=== PATIENT | male | born 1965 ===

== ENCOUNTER 2019-06-24 23:15 | Emergency (ER) | payer OTHER ==
[~2019-06-24] VITALS: Ht 167.6 cm; Wt 86.2 kg
[~2019-06-24 23:15] MED LIST: MILLIPRED DP5 MG PO; NABUMETONE750 MG PO
[2019-06-25] MEDS ORDERED: TOBRADEX EYE DR10 ML OP (01:49)
== END 2019-06-25 02:02 | disposition home or self-care (01) ==
LOC: ER 23:15
DX: H10.13 Acute atopic conjunctivitis, bilateral (principal)

== ENCOUNTER 2021-12-03 23:28 | Inpatient (IN) | payer OTHER ==
[~2021-12-03] VITALS: Ht 167.6 cm; Wt 86.2 kg
[~2021-12-03 23:28] MED LIST changes: +TOBRADEX EYE DR10 ML OP
--- NOTE | 2021-12-03 23:52 | NUR ---
SE RECIBE PTE ALERTA Y ORIENTADO POR ALBERTO. PTE REFIERE QUE HOY ES RILEY OSMIN NUEMERO 11 DE CUARENTENA POR COVID-19 Y QUE DESDE HOY EN LA MANANA PRESENTA DOLOR EN AREA DEL PECHO AL TOSER. PTE PRESENTA TEMPERATURA DE 101.9 Y TOS SECA.
--- NOTE | 2021-12-04 02:34 | NUR ---
PTE ALERTA Y ORIENTADO X3,SE LE CHRISTIANNE MUESTRAS DE [facility]. [facility]. SE CANALIZA AREA KIKO DE EDEMA Y DE ENROJECIMIENTO. SE LE ADMINISTRAN MEDICAMENTO DARIUS ORDEN MEDICA Y SE EDUCA SOBRE TRATAMIENTO MEDICO.
--- NOTE | 2021-12-04 08:12 | NUR ---
SE RECIBE PACIENTE DE TURNO ANTERIOR, ALERTA Y ORIENTADA EN TIEMPO LUGAR Y PERSONA. CON BARANDAS ELEVADAS Y FRENOS AJUSTADOS POR SEGURIDAD. CON VENOPUNCION PATENTE, KIKO DE ERITEMA Y EDEMA, RECIBIENDO AL MOMENTO 0.9 NSS 1000ML A 150ML/HR. PACIENTE KIKO DE DOLOR AL MOMENTO. SE ORIENTA SOBRE CONTINUIDAD DE CUIDADO Y TRATAMIENTO DE ENFERMERIA, EL MISMO VERBALIZA ENTENDER. PENDIENTE CONSULTA CON DR. MARIA C COLLINS, REPETIR MUESTRA CMP. RECIBIENDO OXIGENO MEDIANTE CANULA NASAL A 3L.
[2021-12-08] MEDS ORDERED: VITAMIN C500 M1 PO (19:02)
[2021-12-08] MEDS ORDERED: ZINC SULFATE50 M1 PO (19:02)
[2021-12-08] MEDS ORDERED: MELATONIN5 M2 PO (19:03)
[2021-12-08] MEDS ORDERED: DECADRON6 MG PO (19:04)
== END 2021-12-08 23:12 | disposition home or self-care (01) | DRG 177 ==
LOC: ER 23:28 → MEDJ 12-04 15:31
PROVIDERS: ADMIT Internal Medicine; ATTEND Internal Medicine
PROC: XW033E5 Introduction of Remdesivir Anti-infective into Peripheral Vein, Percutaneous Approach, New Technology Group 5 (ICD-10-PCS; principal; 2021-12-04)
PROC: 8E0ZXY6 Isolation (ICD-10-PCS; 2021-12-04)
PROC: 4A12X4Z Monitoring of Cardiac Electrical Activity, External Approach (ICD-10-PCS; 2021-12-05)
DX: U07.1 COVID-19 (principal); J12.82 Pneumonia due to coronavirus disease 2019; R09.02 Hypoxemia; R06.09 Other forms of dyspnea; R06.02 Shortness of breath